=== PATIENT | female | born 1950 | race Hispanic/Latino ===

== ENCOUNTER 2018-08-22 05:52 | Emergency (ER) | payer MEDICARE ==
[~2018-08-22] VITALS: Ht 162.6 cm; Wt 86.2 kg
--- OUTSIDE RECORDS SUMMARY | 2018-08-22 05:55 | XMS REPORT ---
Author Author Sourav Watts Organization [employer] Address Unknown Phone Unavailable Care Team Providers Care Transportation Engineer Name Role Phone Sourav Watts CP Unavailable Allergies No Known Allergies Problems Problem Type Condition Code Onset Dates Condition Status Problem Chronic venous hypertension (idiopathic) with inflammation of unspecified lower extremity I87.329 Active Problem Varicose veins of left lower extremity with inflammation I83.12 Active Problem Venous insufficiency (chronic) (peripheral) I87.2 Active Medications No Known Medications Results No Known Results Summary Purpose [employer] Submission
--- OUTSIDE RECORDS SUMMARY | 2018-08-22 05:55 | XMS REPORT | Continuity of Care Document ---
Author Author [facility] Interface Address Unknown Phone Unavailable Problems Problem Status Onset Date Classification Date Reported Comments Source Chronic venous hypertension with inflammation of unspecified lower extremity Active Problem 06/04/2017 J Mariano Frommer Varicose veins of left lower extremity with inflammation Active Problem 06/04/2017 J Mariano Frommer Venous insufficiency (peripheral) Active Problem 06/04/2017 J Mariano Frommer Medications Medication Details Route Status Patient Instructions Ordering Provider Order Date Source Allergies, Adverse Reactions, Alerts Substance Category Reaction Severity Reaction type Status Date Reported Comments Source Immunizations Immunization Date Given Site Status Last Updated Comments Source Results Order Name Results Value Reference Range Date Interpretation Comments Source Vital Signs Vital Sign Value Date Comments Source Encounters Location Location Details Encounter Type Encounter Number Reason For Visit Attending Provider ADM Date DC Date Status Source Procedures Procedure Code Date Perfomer Comments Source
[2018-08-22] MEDS ORDERED: ONDANSETRON HCL 4 MG ORAL DISINTEGRATING TAB PO ONE (06:45)
--- NOTE | 2018-08-22 07:01 | Diagnostic Imaging Report ---
EXAM: CT ABDOMEN AND PELVIS without IV CONTRAST INDICATION: Bilateral flank pain COMPARISON: None TECHNIQUE: The abdomen and pelvis were scanned using a multidetector helical scanner. Coronal and sagittal reformations were obtained. Dose modulation, iterative reconstruction, and/or weight based adjustment of the mA/kV was utilized to reduce the radiation dose to as low as reasonably achievable. Routine protocol performed. IV Contrast: None Oral Contrast: None CTDIvol has been reviewed. It is below the limits set by the Radiation Protocol Committee (RPC). FINDINGS: LOWER THORAX: No consolidations LIVER: No masses BILIARY: Normal gallbladder. No ductal dilation. SPLEEN: No masses PANCREAS: No masses ADRENALS: No nodules RIGHT KIDNEY: No nephroureterolithiasis or hydronephrosis. LEFT KIDNEY: No nephroureterolithiasis or hydronephrosis. GI TRACT: No wall thickening or obstruction. Normal appendix. VESSELS: Unremarkable PERITONEUM/RETROPERITONEUM: No free air or fluid LYMPH NODES: No lymphadenopathy REPRODUCTIVE ORGANS: Normal BLADDER: Normal SOFT TISSUES: Normal BONES: No suspicious bone lesions. IMPRESSION: No acute findings. No nephroureterolithiasis or hydronephrosis. Signed by: Dr. Shefali Vizcaino M.D. on 08/22/2018 6:57 AM
== END 2018-08-22 07:31 | disposition home or self-care (01) ==
LOC: FSED 05:52
DX: M54.5 Low back pain (principal); R10.30 Lower abdominal pain, unspecified; M79.18 Myalgia, other site; E11.9 Type 2 diabetes mellitus without complications
CPT/HCPCS: 74176; 80053; 81003; 85025; 93005; 99284

== ENCOUNTER 2018-11-10 11:07 | Emergency (ER) | payer MEDICARE ==
[~2018-11-10] VITALS: Ht 162.6 cm; Wt 86.2 kg
--- OUTSIDE RECORDS SUMMARY | 2018-11-10 11:10 | XMS REPORT ---
Author [facility] Address Unknown Phone Unavailable Care Team Providers Care Linen Controller Name Role Phone Phil COOPER Unavailable Unavailable Problems This patient has no known problems. Allergies, Adverse Reactions, Alerts This patient has no known allergies or adverse reactions. Medications This patient has no known medications. Results Test Description Test Time Test Comments Text Results Atomic Results Result Comments CT ABD/PEL WO CONTRAST-HOPD 2018-08-22 06:51:00 [place] [id number] Patient Name: HERMAN KING MR #: [id number] : 1950 Age/Sex: 67/F Req #: [id number] Adm Physician: Ordered by: DEVAUGHN COOPER MD Report #: [id number] Location: [facility] Room/Bed: Procedure: [id number] HOPD/CT ABD/PEL WO CONTRAST-HOPD Exam Date: 08/22/18 Exam Time: 0630 REPORT STATUS: Signed EXAM: CT ABDOMEN AND PELVIS without IV CONTRAST INDICATION: Bilateral flank pain COMPARISON: None TECHNIQUE: The abdomen and pelvis were scanned using a multidetector helical scanner. Coronal and sagittal reformations were obtained. Dose modulation, iterative reconstruction, and/or weight based adjustment of the mA/kV was utilized to reduce the radiation dose to as low as reasonably achievable. Routine protocol performed. IV Contrast: None Oral Contrast: None CTDIvol has been reviewed. It is below the limits set by the Radiation Protocol Committee (RPC). FINDINGS: LOWER THORAX: No consolidations LIVER: No masses BILIARY: Normal gallbladder. No ductal dilation. SPLEEN: No masses PANCREAS: No masses ADRENALS: No nodules RIGHT KIDNEY: No nephroureterolithiasis or hydronephrosis. LEFT KIDNEY: No nephroureterolithiasis or hydronephrosis. GI TRACT: No wall thickening or obstruction. Normal appendix. VESSELS: Unremarkable PERITONEUM/RETROPERITONEUM: No free air or fluid LYMPH NODES: No lymphadenopathy REPRODUCTIVE ORGANS: Normal BLADDER: Normal SOFT TISSUES: Normal BONES: No suspicious bone lesions. IMPRESSION: No acute findings. No nephroureterolithiasis or hydronephrosis. Signed by: Dr. Margaux Santamaria M.D. on 08/22/2018 6:57 AM Dictated By: MARGAUX SANTAMARIA MD 6 Transcribed By: KELVIN on 08/22/18656 COPY TO: DEVAUGHN COOPER MD
[2018-11-10] MEDS ORDERED: ONDANSETRON HCL INJ 2MG/ML 2ML 2 MG/ML VIAL IV STA (11:57)
[2018-11-10] MEDS ORDERED: MORPHINE SULFATE INJ 4 MG/ML INJ 1ML IV ONE (12:00)
[2018-11-10] MEDS ORDERED: IOPAMIDOL 370 MG/ML 50ML INFUS..BTL INJ ONE (12:45)
--- NOTE | 2018-11-10 13:14 | Diagnostic Imaging Report ---
EXAMINATION: CT of the abdomen and pelvis with contrast. TECHNIQUE: Helical CT images of the abdomen and pelvis were performed from the lung bases to the lesser trochanters after the intravenous administration of 150 cc of Isovue 300 and the oral administration of none. Coronal and sagittal reformatted images were obtained.Dose modulation, iterative reconstruction, and/or weight based adjustment of the mA/kV was utilized to reduce the radiation dose to as low as reasonably achievable. COMPARISON: None. CLINICAL HISTORY:Flank pain DISCUSSION: ABDOMEN/PELVIS: LOWER THORAX:Unremarkable. HEPATOBILIARY: No focal hepatic lesions. No intra-or extrahepatic biliary ductal dilation. The gallbladder not visualized SPLEEN: No splenomegaly. PANCREAS: No focal masses or ductal dilatation. ADRENALS: No adrenal nodules. KIDNEYS/URETERS: No hydronephrosis, stones, or solid mass lesions. PELVIC ORGANS/BLADDER: The bladder is normal. PERITONEUM/RETROPERITONEUM: No free air or fluid. LYMPH NODES: No intra-abdominal, retroperitoneal, pelvic or inguinal lymphadenopathy. VESSELS: The celiac trunk,superior and inferior mesenteric and bilateral renal arteries are patent The portal, superior mesenteric and splenic veins are patent. GI TRACT: No distention or wall thickening. Appendix normal. BONES AND SOFT TISSUE: No bony destructive lesions. Sclerosis adjacent to the sacroiliac joint. IMPRESSION: No acute CT finding. Signed by: Dr. Edward Talbot M.D. on 11/10/2018 1:10 PM
== END 2018-11-10 13:37 | disposition home or self-care (01) ==
LOC: FSED 11:07
DX: M54.5 Low back pain (principal); R10.32 Left lower quadrant pain; R10.31 Right lower quadrant pain; N30.90 Cystitis, unspecified without hematuria
CPT/HCPCS: 74177; 80053; 81003; 85025; 87400; 99284; J2270; J2405; Q9967

== ENCOUNTER 2019-05-26 20:57 | Emergency (ER) | payer MEDICARE ==
[~2019-05-26] VITALS: Ht 160 cm; Wt 87.1 kg
--- OUTSIDE RECORDS SUMMARY | 2019-05-26 21:00 | XMS REPORT | Continuity of Care Document ---
Author Author [facility] Address Unknown Phone Unavailable Care Team Providers Care Faculty Physician Name Role Phone [employer] Unavailable Unavailable Problems Problem Status Onset Date Classification Date Reported Comments Source Chronic venous hypertension (idiopathic) with inflammation of unspecified lower extremity Active Problem 06/04/2017 J Mariano Frommer Varicose veins of left lower extremity with inflammation Active Problem 06/04/2017 J Mariano Frommer Venous insufficiency (chronic) (peripheral) Active Problem 06/04/2017 J Mariano Frommer Medications No Data Provided for This Section Allergies, Adverse Reactions, Alerts No Known Medication Allergies Immunizations No Data Provided for This Section Results No Data Provided for This Section Pathology Reports No Data Provided for This Section Diagnostic Reports No Data Provided for This Section Consultation Notes No Data Provided for This Section Discharge Summaries No Data Provided for This Section History and Physicals No Data Provided for This Section Vital Signs No Data Provided for This Section Encounters Location Location Details Encounter Type Encounter Number Reason For Visit Attending Provider ADM Date DC Date Status Source Departed Emergency Room [id number] DEVAUGHN COOPER MD 08/22/2018 08/22/2018 [facility] Departed Emergency Room [id number] OSCAR ALEX MD 11/10/2018 11/10/2018 [facility] Procedures No Data Provided for This Section Assessment and Plan No Data Provided for This Section Plan of Care Plan of Care Date Source Discharge Date 11/10/18 1:37pm Disposition HOME, SELF-CARE Condition at Discharge Stable Instructions/Education Provided Urinary Tract Infection - Women Forms Provided Work/School Excuse Prescriptions See Medication Section Referrals DAILY SALDAÑA Order Date: Call for an appointment Address: [address] [place] [address] Additional Instructions/Education DISCHARGE INSTRUCTIONS Take Tylenol (Acetaminophen) or Motrin (Ibuprofen) as needed for fever control. Take medication according to label instructions. No strenuous activity for one weeks until better. Drink plenty of fluids. Warnings: GENERAL WARNINGS: Return or contact your physician immediately if your condition worsens or changes unexpectedly, if not improving as expected, or if other problems arise. SPECIFICALLY, return if you develop pain in the abdomen, fever, vomiting, the inability to keep fluids down, blood in vomitus or blood in diarrhea. Prescription Medications: Zofran (orally disintegrating tablets) 4 mg: take 1 orally every 6 hours as needed for nausea and vomiting. Dispense thirty (30). No refill. Macrobid 100 mg: take 1 capsule orally every 12 hours for 7 days. No refill. Tylenol with Codeine Tylenol #3 (30 mg / 300 mg) : take 1 tablet orally every 6 hours as needed for acute pain. Dispense thirty (30). No refill. Flexeril 10 mg: take 1 orally every 8 hours as needed for muscle spasm or pain. Dispense thirty (30). No refills. Follow-up: Follow up with your doctor in one week if not well. Call for an appointment. Understanding of the discharge instructions verbalized by patient and family. 11/10/2018 [facility] Social History Social History Date Source Smoking Status Start Date Stop Date Never Smoker 11/10/2018 [facility] Family History No Data Provided for This Section Advance Directives Order Name Results Value Date Source Advance Directives Advance Directives Directive Response Recorded Date/Time Does the patient have an advance directive? No 08/22/18 8:49am If yes, is advance directive on file with [facility]? No 11/10/18 12:45pm If not on file with [facility] will patient provide a copy? No 11/10/18 12:45pm Do you have a Directive to Physician? No 11/10/18 12:45pm Do you have a Medical Power of Investigator Vice? No 11/10/18 12:45pm Do you have an out of hospital Do Not Resuscitate Order? No 11/10/18 12:45pm Do you have any special needs we should be aware of? No 11/10/18 12:45pm Do you have a support person here with you today? Yes 11/10/18 12:45pm Did patient receive Notice of Privacy Practices? Yes 11/10/18 12:45pm Did patient receive patient rights and responsibilities? Yes 11/10/18 12:45pm 11/10/2018 [facility] Functional Status No Data Provided for This Section
[2019-05-26] MEDS ORDERED: ACETAMINOPHEN 325 MG TAB PO ONE (21:30)
[2019-05-26] MEDS ORDERED: IBUPROFEN 200 MG TAB PO ONE (21:30)
[2019-05-26] MEDS ORDERED: CLONIDINE HCL 0.2 MG TAB PO ONE (21:30)
[2019-05-26] MEDS ORDERED: IBUPROFEN 200 MG TAB ONE (22:03)
[2019-05-26] MEDS ORDERED: CLONIDINE HCL 0.1 MG TAB ONE (22:03)
[2019-05-26] MEDS ORDERED: ACETAMINOPHEN 325 MG TAB ONE (22:03)
--- NOTE | 2019-05-26 22:17 | Diagnostic Imaging Report ---
CT Abdomen and Pelvis without contrast INDICATION: Low back pain, bladder pain, dysuria TECHNIQUE: Thin collimation axial images obtained from the diaphragm to the level of the pubic symphysis without nonionic intravenous contrast. Dose reduction techniques used: Automated exposure control, adjustment of the mAs and/or kVp according to patient size, standardized low-dose protocol, and/or iterative reconstruction technique. RADIATION DOSE: Total DLP: 756.6 mGy*cm Estimated effective dose: (DLP x 0.015 x size factor) mSv CTDIvol has been reviewed. It is below the limits set by the Radiation Protocol Committee (RPC). COMPARISON: CT abdomen/pelvis 11/10/2018. ABDOMEN FINDINGS: Lung Bases: Calcified granuloma in the right lower lobe measures 3 mm there is subsegmental atelectasis in the lung bases.. The visualized portion of the mediastinum is normal. Liver: Decreased attenuation suggestive of steatosis. No evidence of mass. Gallbladder: Absent. No ductal dilatation. Pancreas: Normal attenuation without mass. Spleen: Normal size without mass. Adrenal Glands: No evidence for mass. Kidneys: Right: No renal calculus. No cortical mass or hydronephrosis Left: No renal calculus. No cortical mass or hydronephrosis Lymph Nodes: No enlarged abdominal or periaortic lymph nodes. Aorta: Normal in diameter. PELVIS FINDINGS: Bowel: Stomach: Normal. Small Bowel: Normal in diameter. There are inspissated enteric contents in several small bowel loops in the lower pelvis. No mesenteric edema. No focal mural thickening. Large Bowel: Normal in caliber with normal wall thickness. Appendix: Normal. Bladder: Mildly underdistended but otherwise normal. Ureters: No ureteral dilatation or calculus. The uterus is present and normal in morphology. No adnexal mass. Peritoneum/retroperitoneum: No free fluid or fluid collection. Bones: Unremarkable for age. Soft tissues: Unremarkable. IMPRESSION: 1. Inspissated enteric contents in several nondilated small bowel loops may be the result of dehydration or indigestion. No evidence of bowel obstruction. 2. No evidence of renal calculus or obstructive uropathy. Signed by: Dr. Tammy Presley MD on 05/26/2019 10:14 PM
[2019-05-26 23:30] VITALS: BP 136/66
== END 2019-05-26 23:31 | disposition home or self-care (01) ==
LOC: FSED 20:57
DX: M54.32 Sciatica, left side (principal); M54.31 Sciatica, right side; M47.26 Other spondylosis with radiculopathy, lumbar region; M53.3 Sacrococcygeal disorders, not elsewhere classified; N30.91 Cystitis, unspecified with hematuria; E11.9 Type 2 diabetes mellitus without complications
CPT/HCPCS: 74176; 81003; 99283

== ENCOUNTER 2019-12-24 20:23 | Emergency (ER) | payer MEDICARE ==
[~2019-12-24] VITALS: Ht 160 cm; Wt 87.1 kg
[2019-12-24] MEDS ORDERED: CEFTRIAXONE SOD 1 GM VIAL IM ONE (21:00)
[2019-12-24] MEDS ORDERED: LIDOCAINE HCL 1% LOCAL INJ 20 ML VIAL ONE (21:14)
[2019-12-24] MEDS ORDERED: CEFTRIAXONE SOD 1 GM VIAL ONE (21:14)
== END 2019-12-24 21:29 | disposition home or self-care (01) ==
LOC: FSED 20:23
DX: R30.0 Dysuria (principal); R10.2 Pelvic and perineal pain; N30.00 Acute cystitis without hematuria; E11.9 Type 2 diabetes mellitus without complications
CPT/HCPCS: 81003; 99283; J0696; J2001

== ENCOUNTER 2020-01-05 23:43 | Emergency (ER) | payer MEDICARE ==
[~2020-01-05] VITALS: Ht 157.5 cm; Wt 84.4 kg
[2020-01-06] MEDS ORDERED: CLONIDINE HCL 0.1 MG TAB ONE (00:11)
[2020-01-06] MEDS ORDERED: CLONIDINE HCL 0.2 MG TAB PO ONE (00:15)
--- NOTE | 2020-01-06 00:29 | NUR ---
RETURNED TO RM 2. REPLACED ON BP MONITOR
[2020-01-06] MEDS ORDERED: LISINOPRIL10 MG PO (00:35)
--- NOTE | 2020-01-06 00:50 | Diagnostic Imaging Report ---
CT [facility] HISTORY: Headache COMPARISON: None. TECHNIQUE: Noncontrast axial scans were obtained from skull base to the vertex. Coronal and sagittal reconstructions obtained from the axial data. One or more of the following dose reduction techniques were used: Automated exposure control, adjustment of the mA and/or kV according to patient size, and/or utilization of iterative reconstruction technique. DISCUSSION: Scalp/Skull: Unremarkable. Brain sulci: Appropriate for patient's age. Ventricles: Normal in size and configuration. No hydrocephalus. Extra-axial spaces: No masses or fluid collections. Carotid siphon and vertebral artery calcifications are present. Parenchyma: No abnormal densities. No mass, hemorrhage, or large vascular territory acute infarct. Dural sinuses: No abnormal densities. Sellar/Suprasellar region: Intact. Skull base: Intact. Incidental findings: Bilateral ocular lens replacement. IMPRESSION: No acute intracranial abnormalities. Signed by: Dr. Catracho Escalante M.D. on 01/06/2020 12:47 AM
[2020-01-06 01:00] VITALS: BP 186/86
== END 2020-01-06 01:00 | disposition home or self-care (01) ==
LOC: FSED 23:43
DX: G44.89 Other headache syndrome (principal); I10 Essential (primary) hypertension
CPT/HCPCS: 70450; 99283

== ENCOUNTER 2021-06-06 08:15 | Emergency (ER) | payer MEDICARE ==
[~2021-06-06] VITALS: Ht 157.5 cm; Wt 84.4 kg
[~2021-06-06 08:15] MED LIST: LISINOPRIL10 MG PO
[2021-06-06] MEDS ORDERED: OXYBUTYNIN CHLOR5 MG PO (08:57)
== END 2021-06-06 09:15 | disposition home or self-care (01) ==
LOC: FSED 08:21
DX: N32.81 Overactive bladder (principal); M54.5 Low back pain; K59.09 Other constipation; E11.9 Type 2 diabetes mellitus without complications; I10 Essential (primary) hypertension
CPT/HCPCS: 81003; 99283

== ENCOUNTER 2022-04-11 18:14 | Emergency (ER) | payer MEDICARE ==
[~2022-04-11] VITALS: Ht 152.4 cm; Wt 79.4 kg
[~2022-04-11 18:14] MED LIST changes: +OXYBUTYNIN CHLOR5 MG PO
[2022-04-11] MEDS ORDERED: FAMOTIDINE 20 MG/2 ML VIAL IV STA (18:45)
[2022-04-11] MEDS ORDERED: PANTOPRAZOLE SO40 MG PO (19:09)
[2022-04-11] MEDS ORDERED: LISINOPRIL10 MG PO (19:09)
[2022-04-11] MEDS ORDERED: CLONIDINE HCL 0.1 MG TAB PO ONE (19:15)
[2022-04-11] MEDS ORDERED: FAMOTIDINE 20 MG TAB ONE (19:29)
[2022-04-11] MEDS ORDERED: CLONIDINE HCL 0.1 MG TAB ONE (19:29)
== END 2022-04-11 20:41 | disposition home or self-care (01) ==
LOC: FSED 18:20
DX: R42 Dizziness and giddiness (principal); I10 Essential (primary) hypertension; E11.9 Type 2 diabetes mellitus without complications; K21.9 Gastro-esophageal reflux disease without esophagitis
CPT/HCPCS: 70450; 80053; 81003; 82553; 84484; 85025; 93005; 99284

== ENCOUNTER 2022-06-14 21:54 | Emergency (ER) | payer MEDICARE ==
[~2022-06-14] VITALS: Ht 157.5 cm; Wt 78.0 kg
[~2022-06-14 21:54] MED LIST changes: +PANTOPRAZOLE SO40 MG PO
[2022-06-14] MEDS ORDERED: LORAZEPAM 0.5 MG TAB ONE (23:12)
[2022-06-14] MEDS ORDERED: LORAZEPAM 1 MG TAB PO ONE (23:15)
[2022-06-15 00:14] VITALS: BP 134/62
== END 2022-06-15 00:14 | disposition home or self-care (01) ==
LOC: FSED 22:25
DX: R42 Dizziness and giddiness (principal); I10 Essential (primary) hypertension; E11.9 Type 2 diabetes mellitus without complications; K21.9 Gastro-esophageal reflux disease without esophagitis; F41.9 Anxiety disorder, unspecified
CPT/HCPCS: 80048; 80053; 81003; 82553; 84484; 85025; 93005; 99283